=== PATIENT | male | born 1980 | race Asian ===

== ENCOUNTER 2022-01-01 22:35 | Emergency (ER) | payer BC ==
[~2022-01-01] VITALS: Ht 172.7 cm; Wt 86.4 kg
[2022-01-02 00:45] VITALS: BP 133/84; PULSE 76; TEMP 97.8
== END 2022-01-02 00:45 | disposition home or self-care (01) ==
LOC: COL.ER 22:35
DX: S86.112A Strain of other muscle(s) and tendon(s) of posterior muscle group at lower leg level, left leg, initial encounter (principal); X58.XXXA Exposure to other specified factors, initial encounter
CPT/HCPCS: 31865; L4386